=== PATIENT | female | born 1960 | race Caucasian/White ===

== ENCOUNTER 2019-08-13 10:04 | Outpatient (REF) | payer BC, SELFPAY ==
[2019-08-13 19:37] LABS: Calculated LDL 130 mg/dL; Cholesterol 192 mg/dL (<200); Glucose 83 mg/dL (74-106); HDL Cholesterol 50 mg/dL (40-60); Triglyceride 62 mg/dL (<150)
== END 2019-08-13 10:24 ==
LOC: NCHCN 10:04
PROVIDERS: PCP Physician Assistant; Visit Provider Nurse Practitioner Family
DX: Z00.00 Encounter for general adult medical examination without abnormal findings (principal); Z13.1 Encounter for screening for diabetes mellitus; Z13.220 Encounter for screening for lipoid disorders
CPT/HCPCS: 80061; 82947

== ENCOUNTER 2020-07-22 15:59 | Outpatient (REF) | payer BC, SELFPAY ==
[2020-07-22 19:19] LABS: ALT 28 U/L (14-59); AST 16 U/L (15-37); Albumin 3.7 g/dL (3.4-5.0); Alkaline Phosphatase 68 U/L (46-116); Anion Gap 6.5 mmol/L (3-11); BUN 19 mg/dL (7-18); Bilirubin, Total 0.4 mg/dL (0.2-1.0); CO2 29.5 mmol/L (21.0-32.0); Calculated LDL 123 mg/dL (<100); Chloride 107 mmol/L (98-107); Cholesterol 195 mg/dL (<200); Glucose 91 mg/dL (74-106); HDL Cholesterol 56 mg/dL (40-60); Potassium 4.4 mmol/L (3.5-5.1); Sodium 143 mmol/L (136-145); Total Protein 6.6 g/dL (6.4-8.2); Triglyceride 82 mg/dL (<150)
== END 2020-07-22 16:19 ==
LOC: NCHCN 15:59
PROVIDERS: PCP Physician Assistant; Visit Provider Physician Assistant
DX: Z00.00 Encounter for general adult medical examination without abnormal findings (principal); R03.0 Elevated blood-pressure reading, without diagnosis of hypertension; Z13.220 Encounter for screening for lipoid disorders; Z13.228 Encounter for screening for other metabolic disorders
CPT/HCPCS: 80053; 80061

== ENCOUNTER 2020-09-05 15:25 | Outpatient (REF) | payer BC, SELFPAY ==
--- NOTE | 2020-09-05 14:45 | PAPFT_PTH ---
PATIENT: Liliam Peace LOC: [facility] U#:[id number] AGE/SX: 60/F ROOM: RE09/05/[address]: DAMON Alfaro : 1960 BED: DIS: 09/05/2020 SPEC #: [id number] RECD: 09/05/20 17:42 STATUS: HORTENSIA REQ #: [id number] BERT: 09/05/20 14:[address]: Inez Chase DEPT: [facility] Cytology RECD BY: Divya Mendieta ENTERED: 09/05/20 17:42 SP TYPE: PAPFT OTHR DR: Hieu Jain Tissues: 1 - CX/ENDOCX FOR PAP SMEARS Procedures: PAP THIN PREP/[facility] Screening HPV DNA PROBE Comments: [id number]
== END 2020-09-05 15:26 | disposition home or self-care (01) ==
LOC: LBN 15:25
PROVIDERS: PCP Physician Assistant; Visit Provider Nurse Practitioner Family
DX: Z12.4 Encounter for screening for malignant neoplasm of cervix (principal); Z11.51 Encounter for screening for human papillomavirus (HPV)
CPT/HCPCS: 88142; 87624

== ENCOUNTER 2022-07-15 17:02 | Outpatient (REF) | payer BC, SELFPAY ==
[2022-07-15 21:02] LABS: Anion Gap 4.4 mmol/L (3-11); BUN 24 mg/dL (7-18); CO2 30.6 mmol/L (21.0-32.0); CREATININE 1.1 mg/dL (0.55-1.02); Calcium 8.9 mg/dL (8.5-10.1); Chloride 106 mmol/L (98-107); Estimated GFR 56.46 (mL/min/1.73m2); Glucose 90 mg/dL (74-106); Potassium 3.7 mmol/L (3.5-5.1); Sodium 141 mmol/L (136-145); TSH 0.88 uIU/mL (0.36-3.74)
[2022-07-15 21:15] LABS: Calculated LDL 116 mg/dL (<100); Cholesterol 186 mg/dL (<200); HDL Cholesterol 47 mg/dL (40-60); Triglyceride 117 mg/dL (<150)
[2022-07-15 21:55] LABS: Bacteria Negative HPF (Negative); C & S Indicated? No; Crystals Rare Amorphous HPF (Negative); Epithelial Cells Negative HPF (Negative); Mucus Negative (Negative); RBC 0-2 HPF (0-2); WBC Negative HPF (0-5)
== END 2022-07-15 17:03 | disposition home or self-care (01) ==
LOC: NCHCN 17:02
PROVIDERS: PCP Physician Assistant; Visit Provider Internal Medicine
DX: R03.0 Elevated blood-pressure reading, without diagnosis of hypertension (principal); G47.9 Sleep disorder, unspecified; Z00.00 Encounter for general adult medical examination without abnormal findings
CPT/HCPCS: 80048; 80061; 81015; 84443

== ENCOUNTER 2022-12-24 18:26 | Outpatient (REF) | payer BC, SELFPAY ==
[2022-12-24 18:57] LABS: Abs Immature Grans 0.02 10^3/uL (0.0-0.06); Absolute Basophil Count 0.03 10^3/uL (0.0-0.2); Absolute Eosinophil Count 0.13 10^3/uL (0.0-0.7); Absolute Lymphocyte Count 2.04 10^3/uL (1.2-3.4); Absolute Monocyte Count 0.47 10^3/uL (0.1-0.8); Absolute Neutrophil Count 2.33 10^3/uL (1.2-6.7); Basophils % 0.6; Eosinophils % 2.6; HCT 41.1 % (36.0-46.0); HGB 13.4 g/dL (11.2-15.7); Immature Grans % 0.4; Lymphocytes % 40.6; MCH 28.9 pg (27.0-33.0); MCHC 32.6 % (32.0-36.0); MCV 89 fL (80-95); MPV 10.2 fL (8.0-11.0); Monocytes % 9.4; Neutrophils % 46.4; Platelet Count 183 10^3/uL (130-400); RBC 4.64 10^6/uL (3.93-5.22); RDW 13.6 % (11.7-14.6); RDW-SD 44.3 fL; WBC 5.02 10^3/uL (4.4-10.8)
[2022-12-24 19:11] LABS: INR 0.9 (0.9-1.1); PTT Activated 24.7 sec (21.5-31.9); Prothrombin Time 9.2 sec (9.3-11.0)
== END 2022-12-24 18:27 | disposition home or self-care (01) ==
LOC: NCHCN 18:26
PROVIDERS: PCP Physician Assistant; Visit Provider Internal Medicine
DX: R23.3 Spontaneous ecchymoses (principal)
CPT/HCPCS: 85025; 85610; 85730

== ENCOUNTER 2023-01-11 16:31 | Outpatient (REF) | payer BC, SELFPAY ==
--- NOTE | 2023-01-11 16:00 | PAPFT_PTH ---
PATIENT: Liliam Peace LOC: [facility] U#:[id number] AGE/SX: 62/F ROOM: RE01/11/[address]: Wendy Harris MD : 1960 BED: DIS: 01/11/2023 SPEC #: [id number] RECD: 01/11/23 17:43 STATUS: HORTENSIA REQ #: [id number] BERT: 01/11/23 16:[address]: Wendy Harris DEPT: [facility] Cytology RECD BY: Divya Mendieta ENTERED: 01/11/23 17:43 SP TYPE: PAPFT OTHR DR: Hieu Jain Tissues: 1 - CX/ENDOCX FOR PAP SMEARS Procedures: PAP THIN PREP/[facility] Screening HPV DNA PROBE Comments: [id number]
== END 2023-01-11 16:32 | disposition home or self-care (01) ==
LOC: LBN 16:31
PROVIDERS: PCP Physician Assistant; Visit Provider Obstetrics & Gynecology
DX: Z12.4 Encounter for screening for malignant neoplasm of cervix (principal); Z11.51 Encounter for screening for human papillomavirus (HPV)
CPT/HCPCS: 88142; 87624

== ENCOUNTER 2023-09-14 17:55 | Outpatient (REF) | payer BC, SELFPAY | END 2023-09-14 17:56 | disposition home or self-care (01) | LOC: NCHCN 17:55 | PROVIDERS: PCP Physician Assistant; Visit Provider Internal Medicine | DX: Z13.29 Encounter for screening for other suspected endocrine disorder (principal) | CPT/HCPCS: 84443 ==

== ENCOUNTER 2024-09-17 13:11 | Outpatient (REF) | payer BC, SELFPAY ==
[2024-09-17 19:00] LABS: TSH 0.95 uIU/mL (0.36-3.74)
== END 2024-09-17 13:12 | disposition home or self-care (01) ==
LOC: NCHCN 13:11
PROVIDERS: PCP Physician Assistant; Visit Provider Internal Medicine
DX: Z11.4 Encounter for screening for human immunodeficiency virus [HIV] (principal); Z13.29 Encounter for screening for other suspected endocrine disorder
CPT/HCPCS: 87389; 84443